=== PATIENT | male | born 1950 | race Caucasian/White ===

== ENCOUNTER 2016-11-03 12:46 | Outpatient (CLI) | payer MEDICAID ==
[~2016-11-03] VITALS: Ht 175.3 cm; Wt 63.5 kg
[2016-11-03] MEDS ORDERED: ENAL10TA PO (15:07)
== END 2016-11-03 15:17 ==
LOC: PREOP 12:46
PROVIDERS: ATTEND Otolaryngology Otolaryngology/Facial Plastic Surgery
DX: Z01.818 Encounter for other preprocedural examination (principal); J39.2 Other diseases of pharynx; R22.1 Localized swelling, mass and lump, neck; R07.0 Pain in throat; R13.10 Dysphagia, unspecified

== ENCOUNTER 2016-11-07 09:23 | Inpatient (IN) | payer MEDICAID, OTHER ==
[~2016-11-07] VITALS: Ht 175.3 cm; Wt 56.3 kg
[~2016-11-07 09:23] MED LIST: ENAL10TA PO
[2016-11-07 09:40] VITALS: BP 108/73
[2016-11-07] MEDS ORDERED: LACTATED RINGERS 1,000 ML IV PRN (09:48)
[2016-11-07 09:59] LABS: MEAN PLATELET VOLUME 9.2 FL (7.4-10.4); RED BLOOD COUNT 5.17 10^6/uL (4.35-5.85); RED CELL DISTRIBUTION WIDTH 13.2 % (10.0-14.5); WHITE BLOOD COUNT 14.2 10^3/uL (4.3-11.0)
[2016-11-07] MEDS ORDERED: LACTATED RINGERS 1,000 ML IV SCH (10:00)
[2016-11-07 10:14] LABS: PROTHROMBIN TIME PATIENT 13.3 SEC (12.2-14.7)
[2016-11-07 10:22] LABS: ALANINE AMINOTRANSFERASE 21 U/L (0-55); ANION GAP 12 MMOL/L (5-14); ASPARTATE AMINO TRANSFERASE 31 U/L (5-34); BILIRUBIN,TOTAL 1.1 MG/DL (0.1-1.0); BLOOD UREA NITROGEN 16 MG/DL (7-18); BUN/CREATININE RATIO 19; CALCIUM 10.1 MG/DL (8.5-10.1); CARBON DIOXIDE 26 MMOL/L (21-32); CHLORIDE 88 MMOL/L (98-107); CREATININE SERUM 0.84 MG/DL (0.60-1.30); GFR ESTIMATED > 60; GLUCOSE 126 MG/DL (70-105); POTASSIUM 3.5 MMOL/L (3.6-5.0); SODIUM 126 MMOL/L (135-145); TOTAL PROTEIN 7.1 G/DL (6.4-8.2)
[2016-11-07 10:29] LABS: ALCOHOL < 10 MG/DL (<10)
[2016-11-07] MEDS ORDERED: fentaNYL INJECTION 100 MCG/2 ML AMP IVP ONE (10:45)
--- NOTE | 2016-11-07 10:51 | Diagnostic Imaging Report ---
Portable upright radiograph of the chest. INDICATION: Left pharyngeal mass, preoperative evaluation. FINDINGS: The lungs appear hyperinflated. The heart size is mildly enlarged. There is mild prominence of interstitial markings which could be related to a minimal vascular congestion or mild chronic interstitial thickening. No prior studies are available for comparison. No significant effusion or pneumothorax. The mediastinum and luz maria appear unremarkable. IMPRESSION: Slight interstitial prominence could be from minimal congestion or chronic interstitial thickening. No prior studies are available for comparison. Correlate clinically. There is also mild cardiomegaly and pulmonary hyperinflation suggestive of COPD. Dictated by: Dictated on workstation # [id number]
[2016-11-07] MEDS ORDERED: SUCCINYLCHOLINE INJ 100 MG/5 ML SYR ONE (11:21)
[2016-11-07] MEDS ORDERED: LACTATED RINGERS 1,000 ML IV ONE ×3 (11:21→12:41)
[2016-11-07] MEDS ORDERED: SEVOFLURANE (ULTANE) 15 ML INHAL SOLN ONE (11:21)
[2016-11-07] MEDS ORDERED: ONDANSETRON 4 MG/2 ML (SDV) Z0FRAN ONE (11:21)
[2016-11-07] MEDS ORDERED: fentaNYL INJECTION 100 MCG/2 ML AMP ONE (11:21)
[2016-11-07] MEDS ORDERED: LIDOCAINE PF 2% 10 ML (XYLOCAINE) AMP ONE (11:21)
[2016-11-07] MEDS ORDERED: ROCURONIUM 50 MG/5 ML (ZEMURON) VIAL IV ONE (11:21)
[2016-11-07] MEDS ORDERED: proPOfol 200 MG/20 ML (DIPRIVAN) VIAL IV ONE (11:21)
[2016-11-07] MEDS ORDERED: LIDOCAINE/EPI 1%-1:100,000 (XYLOCAINE) 20ML ONE (11:22)
[2016-11-07] MEDS ORDERED: MIDAZOLAM 2 MG/2 ML (VERSED) VIAL ONE (11:22)
[2016-11-07 11:50] VITALS: BP 156/82
--- NOTE | 2016-11-07 11:55 | Progress Note-Pre Operative ---
Pre-Operative Progress Note H&P Reviewed The H&P was reviewed, patient examined and no changes noted. Date H&P Reviewed: November 07, 2016 Time H&P Reviewed: 11:00 Pre-Operative Diagnosis: Large Left Pharyngeal tumor JAMARCUS RAY MD November 07, 2016 11:55 am
[2016-11-07] MEDS ORDERED: NEOSTIGMINE (BLOXIVERZ ) 1 MG/1ML 10 ML VIAL ONE (12:37)
[2016-11-07] MEDS ORDERED: GLYCOPYRROLATE 0.2 MG/ML (ROBINUL) 2 ML VIAL ONE (12:37)
--- NOTE | 2016-11-07 12:40 | Progress Note-Post Operative ---
Post-Operative Progess Note Surgeon (s)/Spinning Lathe Operator Automatic (s) Surgeon JAMARCUS RAY MD Spinning Lathe Operator Automatic n/a Pre-Operative Diagnosis Large Left Pharyngeal tumor Post-Operative Diagnosis same Post-Op Procedure Note Date of Procedure: November 07, 2016 Name of Procedure Performed: Direct Laryngoscopy with Biopsy of Large Left Pharyngeal Tumor Description & Findings Description and Findings: n/a Anesthesia Type get Estimated Blood Loss minimal Packing none. Specimen(s) collected/removed Left Pharyngeal BIopsy-Squamous Cell carcinoma on Frozen section JAMARCUS RAY MD November 07, 2016 12:40 pm
[2016-11-07] MEDS ORDERED: PHENYLEPHRINE 100 MCG/ML 10 ML (ANESTHESIA) SYR ONE (12:41)
--- NOTE | 2016-11-07 12:44 | Progress Note-Standard ---
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
[2016-11-07] MEDS ORDERED: APAP 325 MG/10.15 ML LIQ (TYLENOL) UDC PO PRN (12:45)
[2016-11-07] MEDS ORDERED: morphine INJ 10 MG/ML 1ML (SYR OR VIAL) ONE (12:45)
[2016-11-07] MEDS ORDERED: ONDANSETRON 4 MG/2 ML (SDV) Z0FRAN IVP PRN (13:00)
[2016-11-07] MEDS ORDERED: morphine INJ 10 MG/ML 1ML (SYR OR VIAL) IVP PRN (13:00)
[2016-11-07 13:50] VITALS: BP 129/70
[2016-11-07] MEDS ORDERED: CATHETER FLUSH 10 ML SYR IV PRN (14:30)
[2016-11-07] MEDS ORDERED: 1/2 NS IV SOLUTION 1,000 ML IV PRN (14:39)
[2016-11-07] MEDS ORDERED: LORazepam 1 MG (ATIVAN) TAB PO PRN (14:45)
[2016-11-07] MEDS ORDERED: ONDANSETRON 4 MG/2 ML (SDV) Z0FRAN IV PRN (14:45)
[2016-11-07] MEDS ORDERED: LORazepam INJ 2 MG/ML (ATIVAN) VIAL IM/IV PRN (14:45)
[2016-11-07] MEDS ORDERED: CETI10TA17 PO (14:53)
[2016-11-07] MEDS ORDERED: LIDO15SO2 MM (14:53)
[2016-11-07] MEDS ORDERED: HYDR-757 PO (14:53)
--- NOTE | 2016-11-07 15:33 | Progress Note-Standard ---
Standard Progress Note Progress Notes/Assess & Plan Progress/Assessment & Plan ENTAlannah Direct Lryngowcoy with Bipsy showed squamous cell carcijnoma will keep patient in hospital Will consult hopsitalist for medical care and possible detox-patient drinks at leasts 6 beers a day and probably more will consult gen surgery for port and peg tube will consult for teeth removal as well apts already made as outpat in about a week for med onc and rad onc ENTAlannah talked with patient about diagnosis and need for treatment-not necessarily curative but hopefully would extend life oupt apts made for dR Gomez and Dr Jerilyn Reddy in decent shape and field may be below teeth will hold off on rmoval until seen by Dr Jean-Baptiste to see what he says consults made for port and peg tube-Dr Moseley consult for detox and meidcal care with hospitalist-Dr Armstrong-thanks may need to keep until port peg tube placed diet as rakesh-will followup in am Final Diagnosis Squamous cell ca of Left Pharynx-t4 JAMARCUS RAY MD November 07, 2016 3:33 pm
[2016-11-07 16:34] VITALS: BP 167/71
--- NOTE | 2016-11-07 16:55 | Consultation ---
History of Present Illness History of Present Illness Patient Consulted On(lili/time) 11/07/16 16:45 Date of Admission History of Present Illness Surgery consulted for PEG tube placement and Port placement. HPI: Pt is a 65 yo male with newly diagnosed Left pharyngeal Squamous Cell Cancer. He states that approximately 2 months ago he noted a swelling in the left neck/jaw area (I believe it has to have been there longer). He complains of pain that has been increasing over the past 2 weeks and was scheduled for biopsy. The biopsy was done today and unfortunately frozen sections came back as Squamous Cancer. He had a CT of neck performed in the past few weeks which revealed an ill-defined mass occupying the left pharyngeal wall; part of the tonsil and tongue as well. Also noted were enlarged lymph nodes in the left side of the neck. He states that he has had trouble eating "cannot eat any food" and has now started having trouble drinking as well. Pt states he normally drinks 6-8 beers per day. He also describes a headache that has basically been constant over the past 1-2 weeks; he states made worse by turning head to right or looking up. If he lays down on left side, the headache goes away. With his diagnosis he will need chemotherapy and Radiation treatments. Unfortunately, he does not have transport to get back to [place]; so it was thought best to try and get these things done while he is here. Allergies and Home Medications Allergies Coded Allergies: No Known Drug Allergies (Unverified , 11/03/16) Home Medications Cetirizine HCl 10 Mg Tablet, 10 MG PO HS, (Reported) Enalapril Maleate 10 Mg Tablet, 10 MG PO DAILY, (Reported) Hydrocodone/Acetaminophen 1 Each Tablet, 1-2 TAB PO Q4H PRN for PAIN-MODERATE, ( Reported) Lidocaine HCl 15 Ml Solution, 5 ML MM EVERY 2-4 HOURS PRN for MOUTH PAIN, ( Reported) Past Pgtvrdj-Zdqyrk-Dgscot Hx Patient Social History Alcohol Use: Regular Use (at least 5-6 beers daily) Recreational Drug Use: No (DENIES) Smoking Status: Current Everyday Smoker (at least 1ppd for over 40 yrs) Cigarettes Per Day: 20 Type Used: Cigarettes Recent Foreign Travel: No Contact w/Someone Who Travel: No Recent Infectious Disease Expo: No Recent Hopitalizations: No Seasonal Allergies Seasonal Allergies: Yes Surgeries HX Surgeries: No Respiratory Hx Respiratory Disorders: No Cardiovascular Hx Cardiac Disorders: Yes Cardiac Disorders: Heart Murmur, Hypertension Neurological Hx Neurological Disorders: Yes Neurological Disorders: Headaches /Migraines Reproductive System Hx Reproductive Disorders: No Sexually Transmitted Disease: No HIV/AIDS: No Genitourinary Hx Genitourinary Disorders: No Gastrointestinal Hx Gastrointestinal Disorders: No Musculoskeletal Hx Musculoskeletal Disorders: Yes (SPINAL STENOSIS) Musculoskeletal Disorders: Arthritis Endocrine Hx Endocrine Disorders: No HEENT HX ENT Disorders: Yes Loss of Vision: Bilateral Hearing Impairment: Denies Cancer Hx Cancer: No Psychosocial Hx Psychiatric Problems: No Integumentary HX Skin/Integumentary Disorder: No Blood Transfusions Hx Blood Disorders: No Adverse Reaction to a Blood Tr: No Family Medical History Significant Family History: Diabetes (Mother) Review of Systems-General Constitutional: chills, diaphoresis (has been going on for past week), dizziness, malaise, weakness, weight loss EENTM: mouth swelling, other (pt states he feels like his left eye is "sinking in", he occasionally spits up blood after brushing his teeth), throat swelling, No blurred vision, No epistaxis, No hearing loss, No tearing Respiratory: No cough, No dyspnea on exertion, No hemoptysis Cardiovascular: No chest pain, No edema, No palpitations Gastrointestinal: No abdominal pain, No constipation, No jaundice, No melena, No nausea, No vomiting, other (pt states he had loss of bowel function today, first time it has ever happened) Genitourinary: No dysuria, No frequency, No hematuria, No hesitancy Musculoskeletal: joint pain, No muscle stiffness, No muscle cramps Skin: No change in color, No change in hair/nails, No lesions, No pruritus Psychiatric/Neurological: Denies Anxiety, Denies Depressed, Headache, Denies Numbness, Denies Seizure, Denies Tremors Other Pt denies any heat or cold intolerance. 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, no hard palate mass) Neck: supple, limited range of motion, other (large fullness on left, very firm and moderately tender) Respiratory: lungs clear, normal breath sounds, no respiratory distress, no accessory muscle use Cardiovascular: regular rate, rhythm, no edema, no gallop Gastrointestinal: normal bowel sounds, non tender, soft, no organomegaly, no pulsatile mass Rectal: deferred Back: no CVA tenderness, no vertebral tenderness Extremities: normal range of motion, non-tender, normal inspection, no pedal edema, no calf tenderness Neurologic/Psychiatric: shift superintendent II-XII nml as tested, no motor/sensory deficits, alert, normal mood/affect, oriented x 3 Skin: warm/dry, pallor Lymphatic: No inguinal node tender (R), No inguinal node tender (L), other (+ left cervical lymphadenopathy) Data Review Labs Laboratory Tests 11/07/16 09:33: Glucometer 128H 11/07/16 09:45: White Blood Count 14.2H, Red Blood Count 5.17, Hemoglobin 16.3, Hematocrit 45, Mean Corpuscular Volume 87, Mean Corpuscular Hemoglobin 32, Mean Corpuscular Hemoglobin Concent 36, Red Cell Distribution Width 13.2, Platelet Count 468H, Mean Platelet Volume 9.2, Prothrombin Time 13.3, INR Comment 1.0, Sodium Level 126L, Potassium Level 3.5L, Chloride Level 88L, Carbon Dioxide Level 26, Anion Gap 12, Blood Urea Nitrogen 16, Creatinine 0.84, Estimat Glomerular Filtration Rate > 60, BUN/Creatinine Ratio 19, Glucose Level 126H, Calcium Level 10.1, Total Bilirubin 1.1H, Aspartate Amino Transf (AST/SGOT) 31, Alanine Aminotransferase (ALT/SGPT) 21, Alkaline Phosphatase 87, Troponin I < 0.30, Total Protein 7.1, Albumin 4.0, Serum Alcohol < 10 11/07/16 14:57: Serum Alcohol < 10 Assessment/Plan Assessment/Plan Assessment/Plan 1. Left Neck/Pharyngeal Squamous Cell Cancer Pt is going to need Chemotherapy and Radiation. In order to get long-term chemo he will need a Port placed. In addition, the radiation may make oral intake impossible and therefore a pre-emptive PEG tub needs to be placed. Will get consent for these 2 procedures. Discussed risk and complications or Port with pt; including but not limited to pain, bleeding, infection, damage to major vessel and even Pneumothorax. Also discussed possible complications of PEG tube placement; not limited to pain , bleeding, esophageal rupture, damage to stomach or intestines and need for further procedure. All questions answered to his satisfaction. Will plan for surgery tomorrow. 2. Hyponatremia - replace slowly, Avoid free water 3. Hypokalemia - replace slowly 4. Hypochloremia 5. Hypertension - monitor BP Clinical Quality Measures DVT/VTE Risk/Contraindication: Risk Factor Score Per Nursin RFS Level Per Nursing on Admit: 4+=Very High HERMILO CARRILLO DO November 07, 2016 16:55
[2016-11-07] MEDS: HYDROcodone/APAP 7.5MG-325 MG/15 ML (LORTAB) UDC PO PRN (17:19)
[2016-11-07] MEDS: NS IV 1000 ML 1,000 ML IV SCH (17:19)
[2016-11-07 19:19] VITALS: BP 159/74
[2016-11-08] VITALS: BP 170/73
[2016-11-08 04:00] VITALS: BP 171/79
--- NOTE | 2016-11-08 06:31 | Progress Note-Standard ---
Standard Progress Note Progress Notes/Assess & Plan Progress/Assessment & Plan ENTAlannah Direct Lryngowcoy with Bipsy showed squamous cell carcijnoma will keep patient in hospital Will consult hopsitalist for medical care and possible detox-patient drinks at leasts 6 beers a day and probably more will consult gen surgery for port and peg tube will consult for teeth removal as well apts already made as outpat in about a week for med onc and rad onc ENTAlannah talked with patient about diagnosis and need for treatment-not necessarily curative but hopefully would extend life oupt apts made for dR Gomez and Dr Jerilyn Reddy in decent shape and field may be below teeth will hold off on rmoval until seen by Dr Jean-Baptiste to see what he says consults made for port and peg tube-Dr Moseley consult for detox and meidcal care with hospitalist-Dr Armstrong-thanks may need to keep until port peg tube placed diet as rakesh-will followup in am Khadijah Appreciate Dr Shafer and Dr Montelongo orders and help for surgery today for port and peg tube once that done and arrangemtns made for peg tube feeds and port isnturctions then home either on thursday or thursday with the above outpt apts already made JAMARCUS RAY MD November 08, 2016 6:31 am
[2016-11-08 08:00] VITALS: BP 186/75
[2016-11-08] MEDS: D5 1/2 NS 1000 ML IV SOLUTION 1,000 ML IV PRN ×2 (09:56→16:42)
[2016-11-08] MEDS ORDERED: LIDOCAINE/EPI 1%-1:100,000 (XYLOCAINE) 20ML ONE (11:05)
[2016-11-08] MEDS ORDERED: HEParin (CENTRAL IV FLUSH) 500 UNIT/5 ML SYR ONE (11:05)
[2016-11-08] MEDS ORDERED: 0.9% SODIUM CHLORIDE PF INJ 20 ML VIAL ONE (11:06)
[2016-11-08] MEDS ORDERED: LACTATED RINGERS 1,000 ML IV PRN (11:11)
[2016-11-08] MEDS ORDERED: ONDANSETRON 4 MG/2 ML (SDV) Z0FRAN ONE (11:15)
[2016-11-08] MEDS ORDERED: fentaNYL INJECTION 100 MCG/2 ML AMP ONE (11:15)
[2016-11-08] MEDS ORDERED: MIDAZOLAM 2 MG/2 ML (VERSED) VIAL ONE (11:15)
[2016-11-08] MEDS ORDERED: amLODIPine 5 MG (NORVASC) TAB ONE (11:29)
[2016-11-08 11:38] LABS: MEAN PLATELET VOLUME 9.1 FL (7.4-10.4); RED BLOOD COUNT 4.35 10^6/uL (4.35-5.85); WHITE BLOOD COUNT 18.6 10^3/uL (4.3-11.0)
--- NOTE | 2016-11-08 11:42 | Consultation-Hospitalist ---
HPI History of Present Illness: HPI/Chief Complaint CC: Oral cancer w/ETOH detox management HPI: This is a 65-year-old white male that was admitted for alcohol detox and placement of PEG tube and port placement due to inability to tolerate by mouth intake due to oral cancer that is extensive in need of palliative treatment. His last drink was morning early and he drinks a great deal really unclear how much and he is not willing to divulge that at this current time. He began having diaphoresis in recovery so is placed in the hospital for detox protocol and Dr. Kim will place PEG tube and port today to begin treatment. His blood pressure still remains high consistent with alcohol withdrawal and this will be managed with blood pressure medication and monitor closely. Overall his prognosis extremely poor he continues to go downstairs and smoke so very difficult to manage this patient with continued use of alcohol and cigarettes. Source: patient Exam Limitations: clinical condition (dysphagia and tongue dysfunction due to cancer load) Date Seen 11/08/16 Attending Physician Derek Blount MD PCP SelfEdilberto MD Referring Physician Date of Admission Home Medications & Allergies Home Medications Reviewed patient Home Medication Reconciliation Form Allergies Allergies Coded Allergies No Known Drug Allergies (Unverified11/03/16) Past Wyjnefn-Ezoznc-Wzphey Hx Patient Social History Marrital Status: single Employed/Student: unemployed Alcohol Use: Regular Use (at least 5-6 beers daily) Recreational Drug Use: No (DENIES) Smoking Status: Current Everyday Smoker (at least 1ppd for over 40 yrs) Cigaretts per day: 20 Type Used: Cigarettes Physical Abuse Screen: No Sexual Abuse: No Recent Foreign Travel: No Contact w/other who traveled: No Recent Hopitalizations: No Recent Infectious Disease Expo: No Seasonal Allergies Seasonal Allergies: Yes Surgeries HX Surgeries: No Respiratory Hx Respiratory Disorders: No Cardiovascular Hx Cardiovascular Disorders: Yes Cardiac Disorders: Heart Murmur, Hypertension Neurological Hx Neurological Disorders: Yes Neurological Disorders: Headaches /Migraines Reproductive System Hx Reproductive Disorders: No Sexually Transmitted Disease: No HIV/AIDS: No Genitourinary Hx Genitourinary Disorders: No Gastrointestinal Hx Gastrointestinal Disorders: No Gastrointestinal Disorders: Pancreatitis Musculoskeletal Hx Musculoskeletal Disorders: Yes (SPINAL STENOSIS) Musculoskeletal Disorders: Degenerate Disk Disease, Arthritis Endocrine Hx Endocrine Disorders: No HEENT HX ENT Disorders: Yes Loss of Vision: Bilateral Hearing Impairment: Denies Cancer Hx Cancer: No Psychosocial Hx Psychiatric Problems: No Integumentary HX Skin/Integumentary Disorder: No Blood Transfusions Hx Blood Disorders: No Adverse Reaction to a Blood Tr: No Family Medical History Significant Family History: Diabetes (Mother) Family Hx: Review of Systems Constitutional: see HPI, weakness EENTM: mouth pain, mouth swelling, throat pain, throat swelling Respiratory: cough, short of breath Cardiovascular: no symptoms reported Gastrointestinal: no symptoms reported Musculoskeletal: no symptoms reported Skin: no symptoms reported Psychiatric/Neurological: No Symptoms Reported All Other Systems Reviewed Negative Unless Noted: Yes Physical Exam Physical Exam Vital Signs Vital Sign - Last 12Hours 11/07/16 09:40 Temp 96.0 Pulse 69 Resp 18 B/P (MAP) 108/73 Pulse Ox 100 Capillary Refill : General Appearance: No Apparent Distress, WD/WN, Chronically ill, Thin Eyes: Bilateral Eye Normal Inspection, Bilateral Eye PERRL HEENT: PERRL/EOMI, Other (mass left tongue and mouth) Neck: Full Range of Motion, Normal Inspection, Non Tender, Supple, Carotid Bruit Respiratory: Chest Non Tender, No Accessory Muscle Use, No Respiratory Distress , Decreased Breath Sounds Cardiovascular: Regular Rate, Rhythm, No Edema, No Gallop, No JVD, No Murmur, Normal Peripheral Pulses Gastrointestinal: Normal Bowel Sounds, No Organomegaly, No Pulsatile Mass, Non Tender, Soft Back: Normal Inspection, No CVA Tenderness, No Vertebral Tenderness Extremity: Normal Capillary Refill, Normal Inspection, Normal Range of Motion, Non Tender, No Calf Tenderness, No Pedal Edema Neurologic/Psychiatric: Alert, Oriented x3, No Motor/Sensory Deficits, Normal Mood/Affect Skin: Normal Color, Warm/Dry Lymphatic: No Adenopathy Results Results/Procedures Lab Laboratory Tests 11/07/16 09:45 11/08/16 11:30 Assessment/Plan Admission Diagnosis Assessment: Severe oral cancer causing dysphasia having PEG tube and port placed today by Dr. Kim Alcohol withdrawal and detox protocol Hypertension [id number] due to alcohol withdrawal process Continued current smoker Assessment and Plan Plan: Blood Pressure management Detox protocol IV fluid until PEG is placed Overall severe poor prognosis due to the extensiveness of his oral cancer Clinical Quality Measures DVT/VTE Risk/Contraindication: Risk Factor Score Per Nursin RFS Level Per Nursing on Admit: 4+=Very High AYAN MILLIGAN DO November 08, 2016 11:42
[2016-11-08] MEDS: ENALAPRIL 10 MG (VASOTEC) TAB PO SCH (11:43)
[2016-11-08 11:57] LABS: ALANINE AMINOTRANSFERASE 18 U/L (0-55); ALBUMIN 3.5 G/DL (3.2-4.5); ANION GAP 11 MMOL/L (5-14); ASPARTATE AMINO TRANSFERASE 26 U/L (5-34); BILIRUBIN,TOTAL 1.1 MG/DL (0.1-1.0); BLOOD UREA NITROGEN 7 MG/DL (7-18); BUN/CREATININE RATIO 13; CALCIUM 8.7 MG/DL (8.5-10.1); CARBON DIOXIDE 27 MMOL/L (21-32); CHLORIDE 90 MMOL/L (98-107); CREATININE SERUM 0.53 MG/DL (0.60-1.30); GFR ESTIMATED > 60; GLUCOSE 102 MG/DL (70-105); SODIUM 128 MMOL/L (135-145); TOTAL PROTEIN 5.9 G/DL (6.4-8.2)
[2016-11-08] MEDS ORDERED: ceFAZolin 2 GM/50 ML NS 50 ML IV NR (12:00)
[2016-11-08] MEDS ORDERED: PROPOFOL INJECTION 50 ML IV ONE (12:00)
[2016-11-08] MEDS ORDERED: meTOprolol 5 MG/5 ML (LOPRESSOR) VIAL ONE (12:25)
[2016-11-08] MEDS ORDERED: ENALAPRILAT 2.5 MG/2 ML (VASOTEC) VIAL IV ONE (12:38)
[2016-11-08] MEDS ORDERED: ATROPINE INJ 0.4 MG/ML SDV ONE (12:50)
--- NOTE | 2016-11-08 12:55 | Progress Note-Post Operative ---
Post-Operative Progess Note Surgeon (s)/Custom Harvester (s) Surgeon HERMILO CARRILLO DO Custom Harvester: none Pre-Operative Diagnosis Large Left Pharyngeal tumor Post-Operative Diagnosis Same Procedure & Operative Findings Date of Procedure 11/08/16 Procedure Performed/Findings 1. Port Placement 2. EGD with PEG placement, co-surgeon Anesthesia Type IV by CUPOLA HOIST OPERATOR Estimated Blood Loss Estimated blood loss (mL): scant Specimens/Packing Specimens Removed none Packing: none HERMILO CARRILLO DO November 08, 2016 12:55
--- NOTE | 2016-11-08 13:02 | Progress Note-Post Operative ---
Post-Operative Progess Note Surgeon (s)/Dike Supervisor (s) Surgeon YOLIS MORFIN DO Dike Supervisor: Dr. Kim Pre-Operative Diagnosis Large Left Pharyngeal tumor Post-Operative Diagnosis same Procedure & Operative Findings Date of Procedure 11/08/16 Procedure Performed/Findings Percutaneous Endoscopic gastrostomy tube placement Anesthesia Type MAC c local Estimated Blood Loss Estimated blood loss (mL): minimal Specimens/Packing Specimens Removed na Packing: none YOLIS MORFIN DO November 08, 2016 13:02
[2016-11-08] MEDS ORDERED: morphine INJ 10 MG/ML 1ML (SYR OR VIAL) IVP PRN (13:30)
[2016-11-08] MEDS ORDERED: ONDANSETRON 4 MG/2 ML (SDV) Z0FRAN IVP PRN (13:30)
--- NOTE | 2016-11-08 14:05 | Diagnostic Imaging Report ---
INDICATION: Port placement. COMPARISON: 11/07/2016. FINDINGS: Single frontal view of the chest obtained. There is a new right Port-A-Cath present, the tip of which appears to be in the mid superior vena cava. There is no evidence of pneumothorax. Heart size is enlarged but unchanged. There is no central venous congestion. No pleural fluid. There is air within colon superimposed between the liver and right diaphragm. Lungs are clear. IMPRESSION: Right Port-A-Cath tip appears to be in the mid superior vena cava without evidence of pneumothorax. No acute cardiopulmonary abnormality is suspected. Reportedly, the patient had a PEG tube placed at the same time. There is a large amount of air under the right diaphragm which is suspected to be intraluminal within colon superimposed between the liver and diaphragm. Dictated by: Dictated on workstation # [id number]
[2016-11-08 14:25] VITALS: BP 168/88
--- NOTE | 2016-11-08 14:56 | Diagnostic Imaging Report ---
INDICATION: Port placement. TECHNIQUE: Single intraprocedure imaging of the upper chest. CORRELATION STUDY: None FINDINGS: A right-sided Infusaport catheter is present. The tip is somewhat ill-defined and there is limited visualization but it projects roughly over the right paramediastinal region. Fluoroscopy time: 6 seconds IMPRESSION: Right subclavian Infusaport catheter tip is somewhat ill-defined. If further assessment is desired, post procedure chest radiograph is recommended. Dictated by: Dictated on workstation # [id number]
--- NOTE | 2016-11-08 15:28 | OPERATIVE REPORT ---
DATE OF SERVICE: PREOPERATIVE DIAGNOSES: 1. 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 Venous insufficiency 3. Dysphagia with possible worsening dysphagia and esophageal stricture in the future. POSTOPERATIVE DIAGNOSES: 1. 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 Venous insufficiency 3. Dysphagia with possible worsening dysphagia and esophageal stricture in the future. PROCEDURES: 1. Port placement right anterior wall right subclavian vein. 2. (A separate procedure as I was a co-surgeon with Dr. Bustos) EGD for PEG tube. SENIOR SUSTAINABILITY CONSULTANT: None. ANESTHESIA: IV sedation. BLOOD LOSS: Scant. SPECIMENS: None. FLUIDS: Per anesthesia. POSTOPERATIVE CONDITION: Stable. INDICATIONS FOR PROCEDURE: The patient is a 65-year-old male who unfortunately was recently diagnosed with a left pharyngeal mass which turned out to be a squamous cell cancer. The plan was he was going to need long term IV access for chemotherapy as well as because of chemotherapy and radiation he was going to receive for the tumor he was probably going to get esophageal strictures and have trouble eating and he would need a PEG tube placed. The second procedure was performed separately with Dr. Bustos as a co-surgeon to perform it. FINDINGS: The patient has a port placed in the right anterior chest wall right subclavian vein. He also had a PEG tube placed. PROCEDURE #1: After informed consent was obtained the patient was brought to the operating room and placed on the table in supine position. He was sterilely prepped and draped in normal fashion. Local lidocaine was used to infiltrate the skin in right anterior chest wall and right at the right clavicle. Then using a 18 gauge finder with the patient slightly in Trendelenburg, advanced with negative inspiration and cannulated the subclavian vein with the first attempt. Good flash of blood. Removed the syringe, placed a guidewire down the needle using Seldinger technique. It went in easily then checked with fluoroscopy and the needle was in good position. Needle was removed, wire was clamped in place and then a small stab incision was made right along the wire, and then on the anterior chest wall another incision was made with a #11 blade, carried down through the skin into the subcutaneous tissue then deeply down to subcutaneous tissue by electrocautery coagulating and down to the chest wall on top of the fascia of the pectoralis muscle. Once this pocket was created, then tunneled the catheter from the small stab incision into the pocket and then over the guidewire used the dilator, placed it using the Seldinger technique. Checked with fluoroscopy, was in good position. Removed the inner portion of the dilator as well as the guidewire and then placed the catheter down the dilator sheath; it went in easily. Again checked with fluoroscopy, it was in good position. This was then pulled just slightly back so that it was just to the top of the superior vena cava and then attached the catheter to the port and then locked it in place with a locking mechanism, placed a Sultana needle and got a good flash of blood and then easily flushed with saline. Then put a 3-0 Prolene suture on the port and then sutured this to the pectoralis muscle and pectoralis fascia. This was placed in the pocket. Then I elected to check again with fluoroscopy. There were no kinks. It was all good position. Closed the incision with a 3-0 Vicryl two interrupted sutures and then closed the skin with 4-0 Monocryl three interrupted subcuticular sutures and then closed the small stab incision with a 4-0 Monocryl subcuticular stitch. The port was then accessed again through the skin and then flushed with heparin. Once this was done the patient was cleaned, dried and Dermabond placed and then Band-Aids. Everything was taken down and the second procedure was started with Dr. Bustos. PROCEDURE #2: EGD was performed. Placed the EGD scope down the mouth. It went in easily. I was able to get down into the stomach, then insufflated the stomach and shined the light on the stomach wall so that Dr. Bustos could see. He then did his portion and while doing this he placed a needle into the stomach, watched the needle go in and then placed a loop grasper down the EGD port and grasped the wire that Dr. Bustos placed in. Then pulled the wire and the EGD scope out. Dr. Bustos then continued his port and then attached the loop that we had pulled out to the PEG tube and then pushed the PEG tube down with the EGD scope. We watched go all the way down through the esophagus into the stomach, turned easily. It was not too tight but was snug up against the abdominal wall. There was no bleeding, and then suctioned out the stomach and then pulled the EGD scope out and then Dr. Bustos finished his portion of the case. He dictated his portion. Sponge, instrument and needle count correct at the end of the case. The patient was transferred to the recovery room in stable condition. Stat chest x-ray was ordered to be done in recovery. Job ID: [id number] DocumentID: [id number] Dictated Date: 11/08/2016 13:36:03 Facility Sales And Admin Date: 11/08/2016 15:27:51 Dictated By: DO HAYDEE FERNANDEZ
[2016-11-08 16:00] VITALS: BP 181/65
[2016-11-08] MEDS: HYDROcodone/APAP 7.5MG-325 MG/15 ML (LORTAB) UDC PO PRN (16:41)
[2016-11-08] MEDS: NS IV 1000 ML 1,000 ML IV SCH (16:43)
--- NOTE | 2016-11-08 18:10 | OPERATIVE REPORT ---
DATE OF SERVICE: 11/08/2016 PREOPERATIVE DIAGNOSIS: Left pharyngeal mass. POSTOPERATIVE DIAGNOSIS: Left pharyngeal mass. PROCEDURE: Percutaneous endoscopic gastrostomy tube placement. SURGEON: Yolis Bustos DO COSURGEON: Dr. Thang Kim to perform endoscopy portion. ANESTHESIA: MAC with local. COMPLICATIONS: None. INDICATIONS: The patient is a 65-year-old male with squamous cell carcinoma. He was going to undergo chemo and radiation. It was asked that a gastrostomy tube be placed. Risks and benefits were discussed by Dr. Thang Kim with the patient and he obtained consent. Consent was signed and on the chart. DESCRIPTION OF PROCEDURE: The patient's abdomen was prepped and draped in a sterile fashion. Dr. Kim went and did endoscopic portion of case and once the scope was in the stomach and insufflated, the light was visualized transdermally. The abdomen was ballottable and was visible endoscopically. Four mL of 1% lidocaine was used to anesthetize the abdomen of this area. A #11 blade scalpel was used to make a small skin incision. An Angiocath needle was inserted through the subcutaneous tissues into the stomach. The catheter was left in the stomach. The needle was removed, and a wire was inserted into stomach which was then grasped endoscopically and brought out through the mouth. The gastrostomy tube was then attached to the wire which was then pulled back in through the mouth and down to the stomach. A securing hub was then placed at approximately 2 cm. The gastrostomy tube was still mobile, but the stomach was secured to the abdominal wall. The tubing was cut to length, and the port was attached to the tubing. The area was washed and dried. Sterile bandage was applied. The patient tolerated procedure well without any complications. He was taken to recovery room in stable condition. See Dr. Kim's dictation for his portion. Job ID: [id number] DocumentID: [id number] Dictated Date: 11/08/2016 14:06:36 Russet Repairer Date: 11/08/2016 16:29:45 Dictated By: YOLIS BUSTOS DO
[2016-11-08] MEDS: morphine INJ 4 MG/ML 1 ML (VIAL/SYRINGE) IVP PRN (19:00)
[2016-11-08 19:29] VITALS: BP 152/75
[2016-11-09] VITALS (8 sets, daily range): BP systolic 160–191; BP diastolic 69–93
[2016-11-09] MEDS: morphine INJ 4 MG/ML 1 ML (VIAL/SYRINGE) IVP PRN ×3 (00:40→15:08)
[2016-11-09] MEDS ORDERED: cloNIDine 0.1 MG (CATAPRES) TAB PO ONE (04:00)
[2016-11-09] MEDS: NS IV 1000 ML 1,000 ML IV SCH ×2 (05:30→09:39)
--- NOTE | 2016-11-09 07:04 | Progress Note-Standard ---
Standard Progress Note Progress Notes/Assess & Plan Progress/Assessment & Plan Khadijah Direct Lryngowcoy with Bipsy showed squamous cell carcijnoma will keep patient in hospital Will consult hopsitalist for medical care and possible detox-patient drinks at leasts 6 beers a day and probably more will consult gen surgery for port and peg tube will consult for teeth removal as well apts already made as outpat in about a week for med onc and rad onc Khadijah talked with patient about diagnosis and need for treatment-not necessarily curative but hopefully would extend life oupt apts made for dR Gomez and Dr Jerilyn Reddy in decent shape and field may be below teeth will hold off on rmoval until seen by Dr Jean-Baptiste to see what he says consults made for port and peg tube-Dr Moseley consult for detox and meidcal care with hospitalist-Dr Armstrong-thanks may need to keep until port peg tube placed diet as rakesh-will followup in am Khadijah Appreciate Dr Shafer and Dr Montelongo orders and help for surgery today for port and peg tube once that done and arrangemtns made for peg tube feeds and port isnturctions then home either on thursday or thursday with the above outpt apts already made Khadijah PEG and port placed on thursday can start to use peg this afternoon patient wanting real food as well oupt apts made will plan on home on thursday as long as he tolerates the peg tube feedings will need supplies etc at home as well will try to get outpt dental apt by thursday as well todya diet as rakesh and plan on home thursday am-[facility] as well JAMARCUS RAY MD November 09, 2016 7:03 am
--- NOTE | 2016-11-09 07:19 | DISCHARGE SUMMARY ---
DATE OF SERVICE: 11/08/2016 PRINCIPLE DIAGNOSES: 1. 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 2. Neck metastasis. 3. Tobacco abuse. 4. Alcohol abuse. HOSPITAL COURSE: The patient was admitted and to the operating room on Thursday where a direct laryngoscopy revealed a large T4 squamous cell carcinoma of the entire left pharyngeal wall. It was difficult to tell where it was direct extension into the left neck or neck nodes. He postoperatively was kept. He was started on a detox regimen by Dr. Armstrong. Consults were made to Dr. Kim who subsequently put in a port and a PEG tube on Thursday. He has outpatient appointments made for evaluation by Dr. Ayers and Dr. Jean-Baptiste for potential combination chemo and radiation regimen. His teeth are in relatively decent shape and we are going to have him evaluated before they are just removed. Followup appointments have been made. He was able to tolerate his diet. Instructions were given on the PEG tube. He was subsequently discharged from the hospital with outpatient appointments to initiate treatment of his cancer. Job ID: [id number] DocumentID: [id number] Dictated Date: 11/09/2016 06:46:23 Unmanned Equipment Operator Date: 11/09/2016 07:19:02 Dictated By: JAMARCUS RAY MD
[2016-11-09] MEDS ORDERED: ENALAPRIL 10 MG (VASOTEC) TAB PO SCH (09:00)
[2016-11-09] MEDS: ENALAPRIL 10 MG (VASOTEC) TAB PO SCH (09:43)
--- NOTE | 2016-11-09 11:44 | Progress Note-Hospitalist ---
Progress Note HPI/CC on Admission CC: Oral cancer w/ETOH detox management HPI: This is a 65-year-old white male that was admitted for alcohol detox and placement of PEG tube and port placement due to inability to tolerate by mouth intake due to oral cancer that is extensive in need of palliative treatment. His last drink was morning early and he drinks a great deal really unclear how much and he is not willing to divulge that at this current time. He began having diaphoresis in recovery so is placed in the hospital for detox protocol and Dr. Kim will place PEG tube and port today to begin treatment. His blood pressure still remains high consistent with alcohol withdrawal and this will be managed with blood pressure medication and monitor closely. Overall his prognosis extremely poor he continues to go downstairs and smoke so very difficult to manage this patient with continued use of alcohol and cigarettes. Progress Notes/Assess & Plan Date Seen 11/09/16 Admission Dx/Process Assessment: Severe oral cancer causing dysphasia having PEG tube and port placed today by Dr. Kim Alcohol withdrawal and detox protocol Hypertension [id number] due to alcohol withdrawal process Continued current smoker Diagonsis/Assessment & Plan Called by RN at 4 in the morning due to SBP of 190 and gave clonidine order Overall still having some discomfort in the left side of his face and would like that relief so he can at least try and mow his lawn PEG tube and port placement yesterday was uncomplicated by Dr. Kim No fever, blood pressure 150/69 No changes Left face with mass affect Clear to auscultation bilaterally Assessment: Severe oral cancer causing dysphasia having PEG tube and port placed yesterday by Dr. Kim POD # 1 Alcohol withdrawal and detox protocol Hypertension [id number] due to alcohol withdrawal process Continued current smoker Plan: Blood Pressure management Detox protocol Overall severe poor prognosis due to the extensiveness of his oral cancer DC tomorrow SW consult AYAN MILLIGAN DO November 09, 2016 11:43
[2016-11-09] MEDS ORDERED: cloNIDine 0.1 MG (CATAPRES) TAB PO PRN (11:45)
[2016-11-09] MEDS: amLODIPine 5 MG (NORVASC) TAB PO SCH (12:19)
--- NOTE | 2016-11-09 13:39 | Anesthesia-General Post-Op ---
MAC Patient Condition Mental Status/LOC: Same as Preop Cardiovascular: Satisfactory Nausea/Vomiting: Absent Respiratory: Satisfactory Pain: Controlled Complications: Absent Post Op Complications Complications None Follow Up Care/Instructions Patient Instructions None needed. Anesthesiology Discharge Order Discharge Order Patient is doing well, no complaints, stable vital signs, no apparent adverse anesthesia problems. No complications reported per nursing. JAIR SEBASTIAN CRNA November 09, 2016 13:39
[2016-11-09] MEDS: HYDROcodone/APAP 7.5MG-325 MG/15 ML (LORTAB) UDC PO PRN (21:18)
[2016-11-10 00:52] VITALS: BP 153/67
[2016-11-10 03:17] VITALS: BP 174/74
[2016-11-10 04:50] VITALS: BP 186/77
[2016-11-10] MEDS: NS IV 1000 ML 1,000 ML IV SCH (04:54)
[2016-11-10 06:00] LABS: BASOPHILS % (AUTO) 0 % (0-10); EOSINOPHILS % (AUTO) 0 % (0-10); LYMPHOCYTES % (AUTO) 7 % (12-44); MEAN CORPUSCULAR HEMOGLOBIN 31 PG (25-34); MEAN CORPUSCULAR HGB CONC 35 G/DL (32-36); MEAN CORPUSCULAR VOLUME 89 FL (80-99); MEAN PLATELET VOLUME 9.7 FL (7.4-10.4); MONOCYTES # (AUTO) 1.5 X 10^3 (0.0-1.0); MONOCYTES % (AUTO) 10 % (0-12); NEUTROPHILS # (AUTO) 12.8 X 10^3 (1.8-7.8); NEUTROPHILS % (AUTO) 83 % (42-75); PLATELET COUNT 400 10^3/uL (130-400); RED BLOOD COUNT 4.33 10^6/uL (4.35-5.85); RED CELL DISTRIBUTION WIDTH 13.1 % (10.0-14.5); WHITE BLOOD COUNT 15.3 10^3/uL (4.3-11.0)
--- NOTE | 2016-11-10 06:14 | Progress Note-Standard ---
Standard Progress Note Progress Notes/Assess & Plan Progress/Assessment & Plan Khadijah Direct Lryngowcoy with Bipsy showed squamous cell carcijnoma will keep patient in hospital Will consult hopsitalist for medical care and possible detox-patient drinks at leasts 6 beers a day and probably more will consult gen surgery for port and peg tube will consult for teeth removal as well apts already made as outpat in about a week for med onc and rad onc Khadijah talked with patient about diagnosis and need for treatment-not necessarily curative but hopefully would extend life oupt apts made for dR Gomez and Dr Jerilyn Reddy in decent shape and field may be below teeth will hold off on rmoval until seen by Dr Jean-Baptiste to see what he says consults made for port and peg tube-Dr Moseley consult for detox and meidcal care with hospitalist-Dr Armstrong-thanks may need to keep until port peg tube placed diet as rakesh-will followup in am Khadijah Appreciate Dr Shafer and Dr Montelongo orders and help for surgery today for port and peg tube once that done and arrangemtns made for peg tube feeds and port isnturctions then home either on thursday or thursday with the above outpt apts already made Khadijah PEG and port placed on thursday can start to use peg this afternoon patient wanting real food as well oupt apts made will plan on home on thursday as long as he tolerates the peg tube feedings will need supplies etc at home as well will try to get outpt dental apt by thursday as well todya diet as rakesh and plan on home thursday am-will need otarrange with [facility] for transport as well Khadijah HOme today still able to take things in by mouth at this point arrangmetns made for outpt onc apts will try to arange dental eval sometime this week jpatient has pain meds at home will need toarange with [employer] for transport home reutrn apt with me after treatments done-will arrange later JAMARCUS RAY MD November 10, 2016 6:14 am
[2016-11-10 06:22] LABS: ALANINE AMINOTRANSFERASE 15 U/L (0-55); ALBUMIN 3.2 G/DL (3.2-4.5); ANION GAP 12 MMOL/L (5-14); ASPARTATE AMINO TRANSFERASE 25 U/L (5-34); BILIRUBIN,TOTAL 0.8 MG/DL (0.1-1.0); BLOOD UREA NITROGEN 10 MG/DL (7-18); BUN/CREATININE RATIO 19; CALCIUM 8.9 MG/DL (8.5-10.1); CARBON DIOXIDE 29 MMOL/L (21-32); CHLORIDE 87 MMOL/L (98-107); CREATININE SERUM 0.53 MG/DL (0.60-1.30); GFR ESTIMATED > 60; GLUCOSE 98 MG/DL (70-105); POTASSIUM 2.9 MMOL/L (3.6-5.0); SODIUM 128 MMOL/L (135-145); TOTAL PROTEIN 6.1 G/DL (6.4-8.2)
[2016-11-10 06:35] LABS: BAND NEUTROPHILS 0 %; BASOPHILS % (MANUAL) 0 %; EOSINOPHILS % (MANUAL) 0 %; LYMPHOCYTES % (MANUAL) 3 %; NEUTROPHILS % (MANUAL) 84 %
[2016-11-10] MEDS ORDERED: KCL 20 MEQ TAB (K-DUR) PO NR (07:00)
[2016-11-10 08:07] VITALS: BP 159/83
[2016-11-10] MEDS ORDERED: AMLO5TAB2 PO (08:53)
--- NOTE | 2016-11-10 08:57 | Progress Note-Hospitalist ---
Progress Note HPI/CC on Admission CC: Oral cancer w/ETOH detox management HPI: This is a 65-year-old white male that was admitted for alcohol detox and placement of PEG tube and port placement due to inability to tolerate by mouth intake due to oral cancer that is extensive in need of palliative treatment. His last drink was morning early and he drinks a great deal really unclear how much and he is not willing to divulge that at this current time. He began having diaphoresis in recovery so is placed in the hospital for detox protocol and Dr. Kim will place PEG tube and port today to begin treatment. His blood pressure still remains high consistent with alcohol withdrawal and this will be managed with blood pressure medication and monitor closely. Overall his prognosis extremely poor he continues to go downstairs and smoke so very difficult to manage this patient with continued use of alcohol and cigarettes. Progress Notes/Assess & Plan Date Seen 11/10/16 Admission Dx/Process Assessment: Severe oral cancer causing dysphasia having PEG tube and port placed today by Dr. Kim Alcohol withdrawal and detox protocol Hypertension [id number] due to alcohol withdrawal process Continued current smoker Diagonsis/Assessment & Plan Pt feels about the same and will arrange for DC home today Arrangements for oncology f/u will be made and Ensure will be arranged by SW No fever, blood pressure stable No changes Left face with mass affect Assessment: Severe oral cancer causing dysphasia having PEG tube and port placed yesterday by Dr. Kim POD # 2 Alcohol withdrawal and detox protocol Hypertension [id number] due to alcohol withdrawal process Continued current smoker Plan: Blood Pressure management Detox protocol Overall severe poor prognosis due to the extensiveness of his oral cancer DC today SW consult Norvasc added to BP regimen AYAN MILLIGAN DO November 10, 2016 08:56
[2016-11-10] MEDS: ENALAPRIL 10 MG (VASOTEC) TAB PO SCH (09:19)
[2016-11-10] MEDS: amLODIPine 5 MG (NORVASC) TAB PO SCH (09:19)
[2016-11-10] MEDS: HYDROcodone/APAP 7.5MG-325 MG/15 ML (LORTAB) UDC PO PRN (09:30)
[2016-11-10] MEDS ORDERED: [UNRECOGNIZED DRUG - OTHER] PEG (11:15)
[2016-11-10] MEDS ORDERED: HYDR-3812 PO (11:54)
[2016-11-10 12:10] VITALS: BP 159/83
[2016-11-10] MEDS: morphine INJ 4 MG/ML 1 ML (VIAL/SYRINGE) IVP PRN (14:47)
[2016-11-10 15:00] VITALS: BP 159/83
== END 2016-11-10 15:00 | disposition home or self-care (01) | DRG 147 ==
LOC: SDC 09:23 → 4TH 13:51 → SDC 11-08 14:30 → 4TH 11-08 14:30
PROVIDERS: ADMIT Otolaryngology Otolaryngology/Facial Plastic Surgery; ATTEND Otolaryngology Otolaryngology/Facial Plastic Surgery
PROC: 0CBM8ZX Excision of Pharynx, Via Natural or Artificial Opening Endoscopic, Diagnostic (ICD-10-PCS; principal; 2016-11-07 12:06)
PROC: 0JH60XZ Insertion of Tunneled Vascular Access Device into Chest Subcutaneous Tissue and Fascia, Open Approach (ICD-10-PCS; 2016-11-08)
PROC: 0DH63UZ Insertion of Feeding Device into Stomach, Percutaneous Approach (ICD-10-PCS; 2016-11-08)
PROC: 02HV33Z Insertion of Infusion Device into Superior Vena Cava, Percutaneous Approach (ICD-10-PCS; 2016-11-08 12:05)
DX: C14.0 Malignant neoplasm of pharynx, unspecified (principal); C79.89 Secondary malignant neoplasm of other specified sites; F10.239 Alcohol dependence with withdrawal, unspecified; F10.10 Alcohol abuse, uncomplicated; R13.10 Dysphagia, unspecified; F17.210 Nicotine dependence, cigarettes, uncomplicated; E87.1 Hypo-osmolality and hyponatremia; E87.6 Hypokalemia; E87.8 Other disorders of electrolyte and fluid balance, not elsewhere classified
CPT/HCPCS: 36415; 71010; 80053; 80320; 82962; 84484; 85007; 85027; 85610; 87081; 93005

== ENCOUNTER 2016-12-04 08:34 | Outpatient (RCR) | payer MEDICAID ==
[~2016-12-04 08:34] MED LIST changes: +AMLO5TAB2 PO; +CETI10TA17 PO; +HYDR-3812 PO; +HYDR-757 PO; +LIDO15SO2 MM; +[UNRECOGNIZED DRUG - OTHER] PEG
[2016-12-04 10:22] LABS: BASOPHILS # (AUTO) 0.1 10^3/uL (0.0-0.1); BASOPHILS % (AUTO) 2 % (0-10); EOSINOPHILS # (AUTO) 0.2 10^3/uL (0.0-0.3); EOSINOPHILS % (AUTO) 2 % (0-10); LYMPHOCYTES # (AUTO) 1.2 X 10^3 (1.0-4.0); LYMPHOCYTES % (AUTO) 14 % (12-44); MEAN CORPUSCULAR HEMOGLOBIN 31 PG (25-34); MEAN CORPUSCULAR HGB CONC 35 G/DL (32-36); MEAN CORPUSCULAR VOLUME 89 FL (80-99); MEAN PLATELET VOLUME 9.6 FL (7.4-10.4); MONOCYTES # (AUTO) 1.1 X 10^3 (0.0-1.0); MONOCYTES % (AUTO) 12 % (0-12); NEUTROPHILS # (AUTO) 6.6 X 10^3 (1.8-7.8); NEUTROPHILS % (AUTO) 71 % (42-75); PLATELET COUNT 496 10^3/uL (130-400); RED BLOOD COUNT 4.32 10^6/uL (4.35-5.85); RED CELL DISTRIBUTION WIDTH 13.6 % (10.0-14.5); WHITE BLOOD COUNT 9.2 10^3/uL (4.3-11.0)
[2016-12-04 10:48] LABS: ALANINE AMINOTRANSFERASE 28 U/L (0-55); ALBUMIN 3.5 GM/DL (3.2-4.5); ANION GAP 11 MMOL/L (5-14); ASPARTATE AMINO TRANSFERASE 20 U/L (5-34); BILIRUBIN,TOTAL 0.7 MG/DL (0.1-1.0); BLOOD UREA NITROGEN 23 MG/DL (7-18); BUN/CREATININE RATIO 33 (0-20); CALCIUM 9.5 MG/DL (8.5-10.1); CARBON DIOXIDE 28 MMOL/L (21-32); CHLORIDE 92 MMOL/L (98-107); GFR ESTIMATED > 60; GLUCOSE 122 MG/DL (70-105); HEMOLYSIS 4 (0-29); ICTERUS 0.7 (0-1.9); LIPEMIA -1 (0-49); SODIUM 131 MMOL/L (135-145); TOTAL PROTEIN 6.1 GM/DL (6.4-8.2)
== END 2017-02-26 | disposition home or self-care (01) ==
LOC: ONC 08:34
PROVIDERS: ATTEND Internal Medicine Hematology & Oncology
DX: C14.0 Malignant neoplasm of pharynx, unspecified (principal); C79.89 Secondary malignant neoplasm of other specified sites; F17.210 Nicotine dependence, cigarettes, uncomplicated
CPT/HCPCS: 36591; 80053; 85025; 99214